=== PATIENT | female | born 1970 | race African-American/Black ===

== ENCOUNTER 2016-11-21 16:44 | Observation (INO) | payer OTHER ==
[~2016-11-21] VITALS: Ht 160 cm; Wt 133.1 kg
[2016-11-21] MEDS ORDERED: DURLAZA162.5 MG PO (16:49)
[2016-11-21 17:43] LABS: MCH 27.3 PG (29.0-34.0); MCHC 30.8 G/DL (30.0-36.0); MCV 88.5 FL (83-99); MEAN PLAT.VOLUME 10.5 uM^3 (9.5-12.4); PLATELET COUNT 240 K/uL (156-360); RBC DIS.WIDTH-CV 13.2 % (11.8-14.6); RBC DIS.WIDTH-SD 42.7 % (39-53); RED BLOOD COUNT 4.18 M/uL (3.80-5.20); WHITE BLOOD COUNT 10.7 K/uL (4.1-10.2)
[2016-11-21 17:54] LABS: D-DIMER ELISA 0.49 mg/L FEU (< 0.57)
[2016-11-21 17:56] LABS: CHLORIDE 111 mEq/L (99-109); POTASSIUM 4.4 mEq/L (3.7-5.4); SODIUM 140 mEq/L (136-147)
[2016-11-21 17:58] LABS: GLUCOSE 97 mg/dL (70-99)
[2016-11-21 17:59] LABS: ANION GAP 8 MEQ/L (2-14)
[2016-11-21 18:00] LABS: TOTAL BILIRUBIN 0.3 mg/dL (0.0-1.0)
[2016-11-21 18:01] LABS: ALKALINE PHOSPHATASE 75 IU/L (3-129)
[2016-11-21 18:02] LABS: GFR ESTIMATE (CALCULATED) > 59 mL/min/
[2016-11-21 18:03] LABS: TROP-I INTERPRETATION NEGATIVE; TROPONIN-I 0.02 ng/mL (0.0-0.30); UREA NITROGEN (BUN) 11 mg/dL (9-23)
[2016-11-21] MEDS ORDERED: LO-DOSE ASPIRIN81 M2 PO (20:24)
[2016-11-21 22:08] VITALS: BP 139/64
[2016-11-22 00:10] VITALS: BP 141/76
[2016-11-22 01:23] LABS: TROP-I INTERPRETATION NEGATIVE; TROPONIN-I 0.01 ng/mL (0.0-0.30)
[2016-11-22 04:31] VITALS: BP 148/75
[2016-11-22 06:12] LABS: TROP-I INTERPRETATION NEGATIVE; TROPONIN-I < 0.01 ng/mL (0.0-0.30)
[2016-11-22 07:06] VITALS: BP 167/77
[2016-11-22 07:28] LABS: HDL CHOLESTEROL 38 MG/DL (Desirable>=50); LDL CHOLESTEROL 113 mg/dL (Desirable<100); NON-HDL CHOLESTEROL 130 mg/dL (Desirable<160); TOTAL CHOLESTEROL 168 mg/dL (Desirable<200); TRIGLYCERIDES 83 MG/DL (Normal: <150)
[2016-11-22] MEDS ORDERED: NORVASC5 MG PO (11:31)
[2016-11-22] MEDS ORDERED: ATORVASTATIN CA80 MG PO (11:31)
[2016-11-22 12:16] VITALS: BP 136/69
[2016-11-22 13:12] LABS: AMPHETAMINES QUANT VALUE 0 NG/ML; BARBITUATES QUANT VALUE 0 NG/ML; BENZODIAZEPINES QUANT VALUE 0 NG/ML; BENZODIAZEPINES, URINE SCREEN Negative (200 ng/mL); MARIJUANA QUANT VALUE 0 NG/ML; OPIATES QUANTITATIVE VALUE 0 NG/ML; PHENCYCLIDINE QUANT VALUE 0 NG/ML
== END 2016-11-22 16:09 | disposition home or self-care (01) ==
LOC: EME 16:44 → EDBD 16:44 → 5WEST 20:26 → EDOF 20:26 → 5WEST 21:55
PROVIDERS: Emergency Medicine; Hospitalist; Physician Assistant Medical
DX: R07.89 Other chest pain (principal); F41.0 Panic disorder [episodic paroxysmal anxiety]; I25.10 Atherosclerotic heart disease of native coronary artery without angina pectoris; I25.2 Old myocardial infarction; I10 Essential (primary) hypertension; F41.9 Anxiety disorder, unspecified; F17.210 Nicotine dependence, cigarettes, uncomplicated; E66.01 Morbid (severe) obesity due to excess calories; Z68.43 Body mass index [BMI] 50.0-59.9, adult; E78.5 Hyperlipidemia, unspecified; Z82.49 Family history of ischemic heart disease and other diseases of the circulatory system
CPT/HCPCS: 70450; 71010; 80053; 80061; 80306 90; 84484; 85027; 85379; 93005; 99281; 99285; G0378; J1200; J1650; J1885; J2765